=== PATIENT | female | born 1950 | race Caucasian/White ===

== ENCOUNTER → 2021-04-22 | Outpatient (CLI) | payer MEDICARE, OTHER ==
[~2021-04-22] MED LIST: ECOTRIN81 MG PO; FEOSOL325 MG PO; LISINOPRIL30 MG PO; OMEPRAZOLE20 M1 PO; VITAMIN D32000 UNI1 PO; ZANAFLEX4 MG PO; ZOLOFT100 MG PO
== END ==
LOC: MAMO 15:12
DX: Z12.31 Encounter for screening mammogram for malignant neoplasm of breast (principal); Z78.0 Asymptomatic menopausal state
CPT/HCPCS: 77063; 77067

== ENCOUNTER → 2022-04-17 | Outpatient (CLI) | payer MEDICARE, OTHER ==
[2022-04-17 13:20] LABS: HEMOGLOBIN 10.8 gm/dl (12.3-15.3); RED BLOOD COUNT 3.84 M/UL (4.00-5.10); WHITE BLOOD COUNT 4.9 K/UL (4.5-11.0)
[2022-04-17 13:47] LABS: BUN/CREATININE RATIO 10 (0-10)
[2022-04-18 07:10] LABS: VITAMIN D, 25-HYDROXY 36.4 ng/mL (30.0-100.0)
[2022-04-18 08:22] LABS: RHEUMATOID ARTHRITIS FACTOR <10.0 IU/mL (<14.0)
== END ==
LOC: LAB 12:11
PROVIDERS: Family Medicine
DX: M25.562 Pain in left knee (principal); M79.641 Pain in right hand; E78.5 Hyperlipidemia, unspecified; I10 Essential (primary) hypertension; E53.8 Deficiency of other specified B group vitamins; D50.9 Iron deficiency anemia, unspecified; M19.042 Primary osteoarthritis, left hand; M19.041 Primary osteoarthritis, right hand; M17.12 Unilateral primary osteoarthritis, left knee
CPT/HCPCS: 36415; 73130; 73564; 80053; 80061; 82607; 82728; 83540; 83550; 83735; 84550; 85027; 85045; 85652; 86140; 86200; 86431